=== PATIENT | female | born 1955 | race Caucasian/White ===

== ENCOUNTER 2016-07-31 22:40 | Emergency (ER) | payer BC ==
[~2016-07-31] VITALS: Ht 180.3 cm; Wt 73.4 kg
[~2016-07-31 22:40] MED LIST: ASPCH81X PO; CORN1POW2 PO; MISCTAB78 PO; MULT-614 PO; MULT-663 PO; OMEG10007 PO; VITAMIN D2 PO
[2016-07-31 22:42] VITALS: TEMP 37.2; Ht 180.3 cm; Wt 73.4 kg
[2016-07-31] MEDS ORDERED: HYDR-5688 PO (23:27)
--- NOTE | 2016-07-31 23:28 | EMERGENCY ROOM VISIT NOTE ---
ED Visit Note First contact with patient: 22:45 CHIEF COMPLAINT: Wrist injury HISTORY OF PRESENT ILLNESS: This 61-year-old female patient presents to the emergency department ambulatory complaining of pain in the left wrist after a fall which occurred earlier this afternoon. The patient reports that she slipped on ice and braced herself with her left wrist. The patient is unable to move their wrist. The patient states the pain is throbbing and 8/10. She did attempt to apply ice to the wrist and taken Tylenol without relief. No laceration, no weakness. No numbness or tingling. The patient denies any other injury. The patient is able to move their fingers and elbow without difficulty. The patient has not had a previous fracture to this wrist. REVIEW OF SYSTEMS: A 6 system review of systems was performed with positives and pertinent negatives in the HPI. ALLERGIES: Oxycodone MEDICATIONS: See med list PMH: Hip replacements SOCIAL HISTORY: The patient lives locally with her family. Nonsmoker. PHYSICAL EXAM: Vital Signs: Reviewed Nurse's notes, vital signs stable. GENERAL : This is a 61-year-old female, in no acute distress, but appears to be in pain , well-developed, well-nourished. NEURO: Alert and oriented to person place and time. Normal sensation to light and sharp touch. MUSCULOSKELETAL: There is no deformity of the left wrist. There is moderate soft tissue swelling over the dorsal aspect of the lateral wrist There is tenderness to palpation over the dorsal aspect of the wrist. There is no snuff box tenderness. Range of motion is significantly decreased due to swelling and discomfort. There is no tenderness of the elbow, hand or fingers. Polysomnography Tech strength 5/5. Radial pulse 2+. SKIN: Normal and intact. The hand is warm and well perfused with capillary refill less than 2 seconds. EMERGENCY DEPARTMENT COURSE: I examined the patient. An X-ray of the left wrist was reviewed by myself and Dr. Fink and does not seem to show any acute fracture. However, given the significance of the patient's swelling I am concerned for possible scaphoid injury. The patient was placed in an Ortho- Glass thumb spica splint and instructed to follow-up with orthopedics next week for evaluation. She was given a home pack and prescription for Parnell to be used for pain. The [place] prescription drug monitoring program was queried and no red flags were identified. The patient verbalized her understanding of my assessment and treatment plan and was discharged home in good condition. DIAGNOSIS: Left wrist injury Current/Historical Medications Scheduled Aspirin (Aspirin Chewable), 81 MG PO QPM Cactus Dextrin (Fiber Powder), 1 DOSE PO 5XWK Fish Oil ([place]-3), 1 CAP PO QPM Misc Natural Products (Osteo Bi-Flex Advanced Do), 1 TAB PO QAM Multiple Minerals W/ Vitamins (Citracal Plus), 1 TAB PO 2XWK Multiple Vitamins W/ Minerals (Centrum Silver Ultra [place]), 1 TAB PO 3XWK [Vitamin D2], 5,000 UNITS PO MONTHLY Scheduled PRN Hydrocodone/Acetaminophen 5MG/325MG (Parnell 5MG/325MG), 1-2 TABLET PO Q4H PRN for Pain Allergies Coded Allergies: Oxycodone (Verified Allergy, Unknown, SKIN ITCHING, 11/29/15) Vital Signs Date Time Temp Pulse Resp B/P Pulse Ox O2 Delivery O2 Flow Rate FiO2 07/31/16 22:42 37.2 79 20 163/90 96 Room Air Medications Administered Medications (Trade) Dose Ordered Sig/Shayna Route Start Time Stop Time Status Last Admin Dose Admin Acetaminophen/ Hydrocodone Bitart (Parnell 5/325mg Home Pack) 1 homepack UD ONCE PO 07/31/16 23:30 07/31/16 23:31 DC 07/31/16 23:28 1 HOMEPACK Departure Information Impression Primary Impression: Left wrist injury Dispostion Home / Self-Care Condition GOOD Prescriptions Hydrocodone/Acetaminophen 5MG/325MG (Parnell 5MG/325MG) Tab 1-2 TABLET PO Q4H Y for Pain, #15 TAB For Initial Treatment Prov: Ivanna Felder ., JOANNA 07/31/16 Referrals Gloria Avalos DO (PCP) Luis Barajas M.D. Patient Instructions A Signature Page, My [facility] [place] Additional Instructions You have been treated in the Emergency Department for Wrist Pain. You have been prescribed Parnell to be used for pain control. This is a narcotic medication. You cannot drive or consume alcohol while on this medicine. This medicine should only be used for pain that cannot be controlled with over-the- counter pain medicines. For pain control, you can use the following [id number] medicines (if >12 yo): - Regular strength (325mg/tab) Tylenol (acetaminophen) 2 tabs every 4-6 hours as needed. Do not exceed 12 tablets in a 24 hour period. Avoid taking more than 4 grams (4000 mg) of Tylenol per day. This includes any other sources of acetaminophen you may take on a regular basis. - Regular strength (200 mg/tab) Advil (ibuprofen) 1-2 tabs every 4-6 hours as needed. Do not exceed a dose of 3200 mg per day. If this is a recent injury (<24 hrs), ice can be applied to the area of pain for the first 3 days to help decrease pain and inflammation. Follow-up with orthopedics next week. Keep the splint in place until follow- up. Do not get the splint wet. Return to the Emergency Department if your current symptoms worsen despite treatment course outlined above, or if you develop any of the following symptoms : intractable pain despite aforementioned treatment course or new onset of numbness or tingling of the fingers.
[2016-07-31] MEDS ORDERED: NORCO 5/325MG HOME PACK PO ONE (23:30)
[2016-08-01 00:10] VITALS: BP 135/78; PULSE 72; O2SAT 97
--- NOTE | 2016-08-01 06:52 | DIAGNOSTIC IMAGING REPORT ---
LEFT WRIST W/NAVICULAR MIN 3 VIEWS CLINICAL HISTORY: Left wrist pain following injury. COMPARISON: None FINDINGS: Alignment of the left wrist is anatomic. No acute fracture is identified. Scaphoid is intact. IMPRESSION: No acute fracture or dislocation of the left wrist. Electronically signed by: Prem Ring M.D. 08/01/2016 6:50 AM Dictated Date/Time: 08/01/2016 6:49 AM
== END 2016-08-01 00:10 | disposition home or self-care (01) ==
LOC: C.EDB 22:42
DX: S69.92XA Unspecified injury of left wrist, hand and finger(s), initial encounter (principal); W01.0XXA Fall on same level from slipping, tripping and stumbling without subsequent striking against object, initial encounter; Z96.649 Presence of unspecified artificial hip joint; Z79.82 Long term (current) use of aspirin; Z79.899 Other long term (current) drug therapy; Z88.5 Allergy status to narcotic agent

== ENCOUNTER → 2016-11-05 | Outpatient (CLI) | payer BC ==
[~2016-11-05] MED LIST changes: +HYDR-5688 PO
[2016-11-05 09:50] LABS: BASO % 0.8 %; BASO ABS # 0.03 K/uL (0-0.2); COMPLETE YES; EOS % 2.7 %; HEMATOCRIT 38.2 % (37-47); LYMPH % 26.6 %; LYMPH ABS # 0.98 K/uL (1.2-3.4); MEAN CELL VOLUME 88.4 fL (80-100); MEAN CORPUSCULAR HEMOGLOBIN 30.3 pg (25-34); MEAN CORPUSCULAR HGB CONC 34.3 g/dl (32-36); MEAN PLATELET VOLUME 10.4 fL (7.4-10.4); MONO % 9.8 %; NEUT % 60.1 %; PLATELET COUNT 303 K/uL (130-400); RED BLOOD COUNT 4.32 M/uL (4.2-5.4); WHITE BLOOD COUNT 3.68 K/uL (4.8-10.8)
[2016-11-05 10:36] LABS: ALT/SGPT 26 U/L (12-78); AST/SGOT 25 U/L (15-37); BLOOD UREA NITROGEN 15 mg/dl (7-18); BUN/CREATININE RATIO 23.7 (10-20); CALCIUM 9.1 mg/dl (8.5-10.1); CARBON DIOXIDE 27 mmol/L (21-32); CHLORIDE 105 mmol/L (98-107); CREATININE 0.64 mg/dl (0.60-1.20); GLUCOSE 104 mg/dl (70-99); SODIUM 140 mmol/L (136-145)
[2016-11-05 10:40] LABS: ALB/GLOB RATIO 1.1 (0.9-2); ALKALINE PHOSPHATASE 69 U/L (45-117); CHOLESTEROL 229 mg/dl (0-200); CHOLESTEROL/HDL RATIO 1.6; HDL CHOLESTEROL 144 mg/dl; LDL CHOLESTEROL CALCULATED 79 mg/dl; TRIGLYCERIDES 28 mg/dl (0-150); VERY LOW DENSITY LIPOPROT CALC 6 mg/dl
[2016-11-05 10:49] LABS: ESTIMATED AVERAGE GLUCOSE 114 mg/dl; HA1C FLAG Normal (Normal)
== END | disposition home or self-care (01) ==
LOC: C.LAB 07:55
PROVIDERS: ATTEND Family Medicine
DX: E55.9 Vitamin D deficiency, unspecified (principal); D64.9 Anemia, unspecified; D72.819 Decreased white blood cell count, unspecified; E78.5 Hyperlipidemia, unspecified

== ENCOUNTER → 2017-01-22 | Outpatient (CLI) | payer BC ==
--- NOTE | 2017-01-22 12:31 | MAMMOGRAPHY REPORT ---
BILATERAL DIGITAL SCREENING MAMMOGRAM WITH CAD: 01/22/2017 TECHNIQUE: Current study was also evaluated with a Computer Aided Detection (CAD) system. Bilateral CC and MLO views were obtained. COMPARISON: Comparison is made to exams dated: 01/21/2016 mammogram, 01/24/2015 ultrasound, 01/24/2015 ma mmogram, 01/17/2015 mammogram, 01/15/2014 mammogram, and 12/30/2012 mammogram - [facility]. BREAST COMPOSITION: The tissue of both breasts is heterogeneously dense, which may obscure small mas ses. FINDINGS: No suspicious masses, calcifications, or areas of architectural distortion are noted in ei ther breast. There has been no significant interval change compared to prior exams. There is stable architectural distortion in the left upper outer quadrant consistent with postsurgical changes. Bila teral benign-appearing calcifications are not significantly changed. IMPRESSION: ACR BI-RADS CATEGORY 2: BENIGN There is no mammographic evidence of malignancy. A 1 year screening mammogram is recommended. The pa tient will receive written notification of the results. Approximately 10% of breast cancers are not detected with mammography. A negative mammographic report should not delay biopsy if a clinically suggestive mass is present. Shari Multani M.D. /:01/22/2017 07:49:59 [employer] Analyst: Katie PFEIFFER(Milana)(M), [facility] letter sent: Normal 1/2 BI-RADS Code: ACR BI-RADS Category 2: Benign
== END | disposition home or self-care (01) ==
LOC: C.MAMM 07:26
PROVIDERS: ATTEND Obstetrics & Gynecology
DX: Z12.31 Encounter for screening mammogram for malignant neoplasm of breast (principal)

== ENCOUNTER → 2017-05-04 | Outpatient (CLI) | payer BC ==
[~2017-05-04] MED LIST changes: -HYDR-5688 PO
== END | disposition home or self-care (01) ==
LOC: C.MAMM 09:04
PROVIDERS: ATTEND Nurse Practitioner Adult Health
DX: Z00.00 Encounter for general adult medical examination without abnormal findings (principal); E55.9 Vitamin D deficiency, unspecified

== ENCOUNTER → 2017-08-03 | Outpatient (CLI) | payer BC | END | disposition home or self-care (01) | LOC: C.PAPS 16:05 | PROVIDERS: ATTEND Obstetrics & Gynecology | DX: Z01.419 Encounter for gynecological examination (general) (routine) without abnormal findings (principal) ==

== ENCOUNTER 2021-04-09 09:39 | Inpatient (IN) ==
[2021-04-09] MEDS ORDERED: SODIUM CHLORIDE 0.9% 1000ML 2,000 ML IV ONE (11:58)
[2021-04-09] MEDS ORDERED: KETOROLAC TROMETHAMINE 15 MG/ML VIAL IV ONE (11:58)
--- NOTE | 2021-04-09 11:58 | Emergency Department Note ---
Impression & Plan Pyelonephritis, Back pain, Leukocytosis ED Provider Note NAME: АННА MOYA AGE: 66 SEX: F : 1955 ARRIVES VIA: Walk-In INFORMANT: Patient ED PROVIDER(S): Fernandez Hurst DO CHIEF COMPLAINT: Weakness HPI: Patient is a 66-year-old female who presents the ER for not feeling well which started this past night with chills and a cough. She notes a dry cough and has not been Coughing anything up. She does have shortness of breath which started Wednesday and has been persistent. She notes her belly feels bloated as well as her legs. She has pain in her bilateral calves. She notes is painful to walk. She does have some nausea. She admits to frequency and some trouble urinating which started several days ago. She was placed on antibiotic by med [facility]. Following this she started to get some diarrhea. She does have some mild back pain. ROS: See above HPI for pertinent positives & negatives. A total of 10 systems reviewed and were otherwise negative. PAST MEDICAL HISTORY:See Below PAST SURGICAL HISTORY:See Below FAMILY HISTORY:See Below SOCIAL HISTORY:See Below HOME MEDICATIONS:See Below ALLERGIES:See Below VITALS:See Below PHYSICAL EXAMINATION: GENERAL: Sitting up in bed, alert, well appearing, well nourished, no distress, non-toxic EYE EXAM: normal conjunctiva. PERRL and EOM's grossly intact. OROPHARYNX: mask in place NECK: supple, no nuchal rigidity, no adenopathy, non-tender LUNGS: Clear to auscultation. Normal chest wall mechanics HEART: no murmurs, S1 normal and S2 normal ABDOMEN: abdomen soft, non-tender, normo-active bowel sounds, no masses, no rebound or guarding. BACK: Back is symmetrical on inspection and there is no deformity, no midline tenderness, no CVA tenderness. UPPER EXTREMITIES: upper extremities are grossly normal. LOWER EXTREMITIES: No pitting edema. Calves are equal bilateral. DPs are 2 out of 4. Full range of motion of bilateral hips knees and ankles. NEURO EXAM: Normal sensorium, cranial nerves II-XII grossly intact, normal speech, no gross weakness of arms, no gross weakness of legs. MEDICAL DECISION MAKING: Patient is a 66-year-old female who presents ER for above-stated complaint. IV was established blood was obtained. Labs show leukocytosis with. Mild D-dimer elevated 23. BMP with a hyponatremia 122. CO2 low 21 5. Lipase is a markable. UA was contaminated with multiple cole. Lyme was negative. Covid was negative. CT abdomen pelvis shows a likely pyelonephritis. Patient was given IV antibiotics and IV fluids. Updated bedside. Discussed with the hospitalist admitted for further work-up. Triage Nursing notes reviewed. Limited review of prior medical records performed Vital Signs: reviewed and remarkable for no significant abnormalities Differential diagnosis: Infection, dehydration, metabolic abnormality, hypo/hyperglycemia, electrolyte disturbance, anemia, hypoxia, cardiac sources, intracerebral event, toxicologic, neurologic, as well as other pathologies. ER treatment provided: See below Diagnostics interpreted by me: ECG: Sinus rhythm rate 78 Normal axis No PVCs QTC 417 Cardiac Monitoring: An order was placed for continuous cardiac monitoring. The monitor shows a rate of 92 with sinus rhythm. Laboratory studies: As stated above and show below. Imaging studies: See below Consultation(s): Discussed the hospitalist for further evaluation Procedures: none Critical Care: None Past Med/Surg History Medical History (Updated 04/09/21 @ 18:12 by Fernandez Hurst DO) MICHAEL positive Hearing loss Hyperglycemia Hyperlipidemia Osteoarthritis (arthritis due to wear and tear of joints) Raynaud's phenomenon without gangrene Vitamin D deficiency Surgical History H/O colonoscopy History of breast biopsy History of hip replacement History of hip surgery S/P left knee arthroscopy S/P trigger finger release Family History Father Heart failure [employer] pneumoconiosis Cardiac disorder Hypertension Lung disease Mother Stroke syndrome Coronary heart disease Hypertension Cardiac disorder Myocardial infarction Brother Alcoholic liver damage Alcohol abuse Uncle Myocardial infarction Denies family history of Ovarian cancer Prostate cancer Breast cancer Colorectal cancer Social History Smoking Status: Never smoker Hx Alcohol Use: Yes Alcohol type: wine Hx Substance Use: No Preferred Language: Slovak Communication Ability: Effective Visual Impairment: No Limitations Hearing Ability: Use of Hearing Aid marital status: Current Living Situation: Spouse current occupational status: employed current occupation: [employer] Feels Safe at Home: Yes Childhood Exposure to Second-Hand Smoke: Yes Dental Care, Regularly: Yes Physical Activity Frequency: Daily Seatbelt Use: always Sunscreen Use: Yes Allergies Allergies Allergy/AdvReac Type Severity Reaction Status Date / Time oxycodone Allergy Unknown SKIN Verified 10/31/20 11:28 ITCHING Home Meds Home Medications Medication Instructions Recorded Confirmed omega-3 fatty acids 1,000 mg 1,000 mg PO DAILY 04/13/19 04/09/21 capsule cholecalciferol (vitamin D3) 10 400 units PO 3XWK cap 04/14/19 04/09/21 mcg (400 unit) capsule multivitamin-ferrous 1 tab PO DAILY tab 04/14/19 04/09/21 fumarate-folic acid 18 mg-400 mcg tablet chondroitin sulf A sod (bulk) 1 dose PO DAILY 10/06/19 04/09/21 [Chondroitin Sulfate] methylcellulose (with sugar) oral 1 tbs PO BID 10/06/19 04/09/21 powder (Citrucel (sucrose)) turmeric root extract 500 mg 500 mg PO DAILY PRN 04/19/20 04/09/21 capsule aspirin 81 mg tablet,delayed 81 mg PO DAILY 04/09/21 04/09/21 release Results & Data (ED) Vital Signs Vital Signs - 24 hr 04/09/21 09:57 04/09/21 11:20 04/09/21 11:30 Temperature 37 C Temperature Source Temporal Artery Scan Pulse Rate 95 H 90 79 Pulse Rate from SpO2 Sensor 90 Respiratory Rate 16 18 19 Respiratory Effort / Characteristics Non-Labored Respiratory Depth Normal Blood Pressure 143/77 H 180/98 H 172/102 H Blood Pressure Mean 99 125 125 Pulse Oximetry 100 99 Oxygen Delivery Method Room Air Sepsis Recent Fever Within 48 Hours No Sepsis New/Unexplained Change in Mental Status No Sepsis Action Taken by Nursing No Action Required 04/09/21 11:45 04/09/21 12:00 04/09/21 12:15 Temperature Temperature Source Pulse Rate 80 75 82 Pulse Rate from SpO2 Sensor 81 76 81 Respiratory Rate 21 19 23 Respiratory Effort / Characteristics Respiratory Depth Blood Pressure 164/97 H 164/90 H 164/98 H Blood Pressure Mean 119 114 120 Pulse Oximetry 98 97 99 Oxygen Delivery Method Sepsis Recent Fever Within 48 Hours Sepsis New/Unexplained Change in Mental Status Sepsis Action Taken by Nursing 04/09/21 12:30 04/09/21 12:41 04/09/21 12:45 Temperature Temperature Source Pulse Rate 78 77 Pulse Rate from SpO2 Sensor 79 77 Respiratory Rate 23 22 Respiratory Effort / Characteristics Respiratory Depth Blood Pressure 169/89 H 163/92 H Blood Pressure Mean 115 115 Pulse Oximetry 98 98 99 Oxygen Delivery Method Room Air Sepsis Recent Fever Within 48 Hours Sepsis New/Unexplained Change in Mental Status Sepsis Action Taken by Nursing 04/09/21 13:29 04/09/21 13:45 04/09/21 14:00 Temperature Temperature Source Pulse Rate 98 H 77 79 Pulse Rate from SpO2 Sensor 77 78 Respiratory Rate 21 20 Respiratory Effort / Characteristics Respiratory Depth Blood Pressure 152/86 H 162/90 H Blood Pressure Mean 108 114 Pulse Oximetry 99 97 Oxygen Delivery Method Sepsis Recent Fever Within 48 Hours Sepsis New/Unexplained Change in Mental Status Sepsis Action Taken by Nursing 04/09/21 17:10 04/09/21 17:30 04/09/21 18:00 Temperature Temperature Source Pulse Rate 73 84 Pulse Rate from SpO2 Sensor 71 Respiratory Rate 21 21 15 Respiratory Effort / Characteristics Respiratory Depth Blood Pressure 146/84 H 152/84 H Blood Pressure Mean 104 106 Pulse Oximetry 100 Oxygen Delivery Method Sepsis Recent Fever Within 48 Hours Sepsis New/Unexplained Change in Mental Status Sepsis Action Taken by Nursing Laboratory Data Result diagrams: 04/09/21 11:30 04/09/21 11:30 Lab Results 04/09/21 04/09/21 04/09/21 Range/Units 11:30 11:30 11:30 WBC 13.90 H (4.8-10.8) K/uL RBC 3.93 L (4.2-5.4) M/uL Hgb 12.3 (12.0-16.0) g/dL Hct 34.2 L (37-47) % MCV 87.0 (80-100) fL MCH 31.3 (25-34) pg MCHC 36.0 (32-36) g/dL RDW Std Deviation 42.7 (36.4-46.3) fL RDW Coeff of Allen 13.2 (11.5-14.5) % Plt Count 354 (130-400) K/uL MPV 9.8 (7.4-10.4) fL Immature Gran % (Auto) 1.0 % Neut % (Auto) 82.2 % Lymph % (Auto) 8.8 % Jack % (Auto) 7.6 % Eos % (Auto) 0.3 % Baso % (Auto) 0.1 % Neut # (Auto) 11.43 H (1.4-6.5) K/uL Lymph # (Auto) 1.23 (1.2-3.4) K/uL Jack # (Auto) 1.05 H (0.11-0.59) K/uL Eos # (Auto) 0.04 (0-0.5) K/uL Baso # (Auto) 0.01 (0-0.2) K/uL Immature Gran # (Auto) 0.14 H (0.00-0.02) K/uL D-Dimer 2300 H* (0-500) ug/L FEU Sodium 122 L (136-145) mmol/L Potassium 3.5 (3.5-5.1) mmol/L Chloride 92 L (98-107) mmol/L Carbon Dioxide 20 L (21-32) mmol/L Anion Gap 10.0 (3-11) BUN 27 H (7-18) mg/dl Creatinine 1.52 H (0.6-1.2) mg/dl Est Cr Clr Drug Dosing Not Reportable Est GFR ( Amer) 41.0 ml/min Est GFR (Non-Af Amer) 35.4 ml/min BUN/Creatinine Ratio 18.0 (10-20) Glucose 105 H (70-99) mg/dl Calcium 9.0 (8.5-10.1) mg/dl Total Bilirubin 0.7 (0.2-1) mg/dl AST 26 (15-37) U/L ALT 40 (12-78) U/L Alkaline Phosphatase 352 H (45-117) U/L Troponin I < 0.015 (0-0.045) ng/ml Total Protein 7.5 (6.4-8.2) gm/dl Albumin 2.6 L (3.4-5.0) gm/dl Globulin 4.9 H (2.5-4.0) gm/dl Albumin/Globulin Ratio 0.5 L (0.9-2) Lipase 91 (73-393) U/L Urine Color Urine Appearance (Clear) Urine pH (4.5-7.5) Ur Specific Finley (1.000-1.030) Urine Protein (Negative) Urine Glucose (UA) (Negative) Urine Ketones (Negative) Urine Blood (Negative) Urine Nitrite (Negative) Urine Bilirubin (Negative) Urine Urobilinogen (Negative) Ur Leukocyte Esterase (Negative) Urine WBC (Auto) (0-5) /hpf Urine RBC (Auto) (0-4) /hpf U Hyaline Cast (Auto) (0-5) /lpf U Epithel Cells (Auto) (0-5) /lpf Urine Bacteria (Auto) (Negative) Ur Renal Epithelial Cell Urine Yeast Lyme Disease IgG Ab (Negative) Lyme Disease IgM Ab (Negative) COVID-19 Eval Order SARS-CoV-2 (PCR) (Negative) SARS-CoV-2 RNA (FABIOLA) 04/09/21 04/09/21 04/09/21 Range/Units 11:30 11:30 12:11 WBC (4.8-10.8) K/uL RBC (4.2-5.4) M/uL Hgb (12.0-16.0) g/dL Hct (37-47) % MCV (80-100) fL MCH (25-34) pg MCHC (32-36) g/dL RDW Std Deviation (36.4-46.3) fL RDW Coeff of Allen (11.5-14.5) % Plt Count (130-400) K/uL MPV (7.4-10.4) fL Immature Gran % (Auto) % Neut % (Auto) % Lymph % (Auto) % Jack % (Auto) % Eos % (Auto) % Baso % (Auto) % Neut # (Auto) (1.4-6.5) K/uL Lymph # (Auto) (1.2-3.4) K/uL Jack # (Auto) (0.11-0.59) K/uL Eos # (Auto) (0-0.5) K/uL Baso # (Auto) (0-0.2) K/uL Immature Gran # (Auto) (0.00-0.02) K/uL D-Dimer (0-500) ug/L FEU Sodium (136-145) mmol/L Potassium (3.5-5.1) mmol/L Chloride (98-107) mmol/L Carbon Dioxide (21-32) mmol/L Anion Gap (3-11) BUN (7-18) mg/dl Creatinine (0.6-1.2) mg/dl Est Cr Clr Drug Dosing Est GFR ( Amer) ml/min Est GFR (Non-Af Amer) ml/min BUN/Creatinine Ratio (10-20) Glucose (70-99) mg/dl Calcium (8.5-10.1) mg/dl Total Bilirubin (0.2-1) mg/dl AST (15-37) U/L ALT (12-78) U/L Alkaline Phosphatase (45-117) U/L Troponin I (0-0.045) ng/ml Total Protein (6.4-8.2) gm/dl Albumin (3.4-5.0) gm/dl Globulin (2.5-4.0) gm/dl Albumin/Globulin Ratio (0.9-2) Lipase (73-393) U/L Urine Color Yellow Urine Appearance Clear (Clear) Urine pH 6.5 (4.5-7.5) Ur Specific Finley 1.006 (1.000-1.030) Urine Protein 1+ H (Negative) Urine Glucose (UA) Negative (Negative) Urine Ketones Negative (Negative) Urine Blood 2+ H (Negative) Urine Nitrite Negative (Negative) Urine Bilirubin Negative (Negative) Urine Urobilinogen Negative (Negative) Ur Leukocyte Esterase 1+ H (Negative) Urine WBC (Auto) >30 H (0-5) /hpf Urine RBC (Auto) 5-10 H (0-4) /hpf U Hyaline Cast (Auto) 1-5 (0-5) /lpf U Epithel Cells (Auto) >30 H (0-5) /lpf Urine Bacteria (Auto) 1+ H (Negative) Ur Renal Epithelial Cell Not Reportable Urine Yeast Not Reportable Lyme Disease IgG Ab Negative (Negative) Lyme Disease IgM Ab Negative (Negative) COVID-19 Eval Order Covid19 [place] [facility] SARS-CoV-2 (PCR) (Negative) SARS-CoV-2 RNA (FABIOLA) 04/09/21 04/09/21 04/09/21 Range/Units 12:11 Unknown Unknown WBC (4.8-10.8) K/uL RBC (4.2-5.4) M/uL Hgb (12.0-16.0) g/dL Hct (37-47) % MCV (80-100) fL MCH (25-34) pg MCHC (32-36) g/dL RDW Std Deviation (36.4-46.3) fL RDW Coeff of Allen (11.5-14.5) % Plt Count (130-400) K/uL MPV (7.4-10.4) fL Immature Gran % (Auto) % Neut % (Auto) % Lymph % (Auto) % Jack % (Auto) % Eos % (Auto) % Baso % (Auto) % Neut # (Auto) (1.4-6.5) K/uL Lymph # (Auto) (1.2-3.4) K/uL Jack # (Auto) (0.11-0.59) K/uL Eos # (Auto) (0-0.5) K/uL Baso # (Auto) (0-0.2) K/uL Immature Gran # (Auto) (0.00-0.02) K/uL D-Dimer (0-500) ug/L FEU Sodium (136-145) mmol/L Potassium (3.5-5.1) mmol/L Chloride (98-107) mmol/L Carbon Dioxide (21-32) mmol/L Anion Gap (3-11) BUN (7-18) mg/dl Creatinine (0.6-1.2) mg/dl Est Cr Clr Drug Dosing Est GFR ( Amer) ml/min Est GFR (Non-Af Amer) ml/min BUN/Creatinine Ratio (10-20) Glucose (70-99) mg/dl Calcium (8.5-10.1) mg/dl Total Bilirubin (0.2-1) mg/dl AST (15-37) U/L ALT (12-78) U/L Alkaline Phosphatase (45-117) U/L Troponin I (0-0.045) ng/ml Total Protein (6.4-8.2) gm/dl Albumin (3.4-5.0) gm/dl Globulin (2.5-4.0) gm/dl Albumin/Globulin Ratio (0.9-2) Lipase (73-393) U/L Urine Color Urine Appearance (Clear) Urine pH (4.5-7.5) Ur Specific Finley (1.000-1.030) Urine Protein (Negative) Urine Glucose (UA) (Negative) Urine Ketones (Negative) Urine Blood (Negative) Urine Nitrite (Negative) Urine Bilirubin (Negative) Urine Urobilinogen (Negative) Ur Leukocyte Esterase (Negative) Urine WBC (Auto) (0-5) /hpf Urine RBC (Auto) (0-4) /hpf U Hyaline Cast (Auto) (0-5) /lpf U Epithel Cells (Auto) (0-5) /lpf Urine Bacteria (Auto) (Negative) Ur Renal Epithelial Cell Urine Yeast Lyme Disease IgG Ab (Negative) Lyme Disease IgM Ab (Negative) COVID-19 Eval Order Covid19 at [facility] SARS-CoV-2 (PCR) NEGATIVE (Negative) SARS-CoV-2 RNA (FABIOLA) Cancelled Administered Medications Discontinued Medications Sodium Chloride (Nss 1000ml) 2,000 mls @ 999 mls/hr IV .Q2H1M ONE Stop: 04/09/21 13:58 Last Infusion: 04/09/21 16:24 Dose: 0 mls/hr Documented by: [id number] Admin: 04/09/21 14:19 Dose: 999 mls/hr Documented by: [id number] Ceftriaxone Sodium (Rocephin) 1,000 mg in 50 mls @ 100 mls/hr IV NOW STA Stop: 04/09/21 14:51 Last Infusion: 04/09/21 16:19 Dose: 0 mls/hr Documented by: [id number] Admin: 04/09/21 15:18 Dose: 100 mls/hr Documented by: [id number] Ioversol (Optiray 320 125ml) 120 ml IV ONCE ONE Stop: 04/09/21 13:30 Last Admin: 04/09/21 13:29 Dose: 120 ml Documented by: [id number] Ketorolac Tromethamine (Ketorolac Tromethamine 15 Mg/Ml Vial) 15 mg IV NOW ONE Stop: 04/09/21 11:59 Last Admin: 04/09/21 14:19 Dose: 15 mg Documented by: [id number] Ketorolac Tromethamine (Ketorolac Tromethamine 15 Mg/Ml Vial) Confirm Administered Dose 15 mg .ROUTE .STK-MED ONE Stop: 04/09/21 14:11 Last Admin: 04/09/21 14:38 Dose: Not Given Documented by: [id number] Imaging Data Radiologist's Impression: Chest X-Ray 04/09/21 11:58 XR chest 1V portable HISTORY: 66 years-old Female sob acute shortness of breath COMPARISON: Chest radiograph 01/07/2012 TECHNIQUE: Portable AP view of the chest FINDINGS: Cardiac mediastinal and hilar silhouettes are within normal limits. There is no pneumothorax, pleural effusion, airspace consolidation or overt pulmonary edema. Bones of the chest appear grossly intact. IMPRESSION: No acute process. ACT 112: Negative or not required by law. The above report was generated using voice recognition software. It may contain grammatical, syntax or spelling errors. Electronically signed by: Edgar Tsai M.D. 04/09/2021 12:18 PM Abdomen/Pelvis CT 04/09/21 12:42 CT OF THE ABDOMEN AND PELVIS WITH CONTRAST CLINICAL HISTORY: Abdominal pain. COMPARISON STUDY: None. TECHNIQUE: Following IV administration of 120 mL of Optiray, axial images of the abdomen and pelvis were obtained from the lung bases to the proximal femurs. Images were reviewed in the axial, sagittal, and coronal planes. IV contrast was administered without complication. Automated exposure control was utilized for the study. A dose lowering technique was utilized adhering to the principles of ALARA. CT DOSE: 669.59 mGy.cm FINDINGS: Please note that the chest CT will be reported separately. No pneumatosis, free air or portal venous gas is present. Evaluation of the abdomen and pelvis is somewhat difficult given a paucity of intra-abdominal fat. The liver, spleen, adrenal glands and pancreas are unremarkable. There is no biliary or pancreatic ductal dilatation. There is mild body wall edema. A small amount of ascites within the pelvis is noted. Bilateral hip arthroplasties are noted. The caliber and wall thickness of small and large bowel are normal. The appendix is normal. There is no lymphadenopathy. There is no hydronephrosis. Of note, the kidneys are enlarged with multiple hypoenhancing foci within both kidneys, most notably within the upper to midpole of both kidneys. In addition, striated nephrograms are noted. There is mild urothelial thickening of the collecting systems and ureters. Bladder is obscured by streak artifact from hip arthroplasties. No renal abscess is identified. Major vasculature is patent. There is mild bilateral perinephric stranding and fluid. No acute fracture or suspicious lesion is identified within the visualized skeletal structures. IMPRESSION: 1. Findings consistent with extensive acute bilateral pyelonephritis, likely due to ascending infection. No renal abscess. No hydronephrosis. A follow-up CT in 3 months to ensure resolution is recommended to exclude the much less likely possibility of an underlying renal lesion. 2. Small amount of ascites within the pelvis. Mild body wall edema. ACT 112: Negative or not required by law. Electronically signed by: Prem Ring M.D. 04/09/2021 1:53 PM Chest CTA 04/09/21 12:42 CT angio chest PE protocol INDICATION: MN ^B8 ^+dd cp sob. TECHNIQUE: Multidetector row helical CT of the chest was performed. Coronal and sagittal reformations were obtained. Automated dose lowering techniques and/or adjustment according to patient size were utilized for this exam. Comparison: None available at the time of this dictation. FINDINGS: Lungs and pleura: Emphysematous changes are seen. Heart and pericardium: Heart size is normal. No pericardial effusion. Vessels: No evidence of pulmonary embolism. Mediastinum and leandro: Unremarkable. Chest wall and lower neck: Unremarkable. Abdomen: For findings below the diaphragm, please refer to CT of the abdomen dated the same. Bones: Degenerative changes in the thoracic spine. IMPRESSION: No evidence of pulmonary embolism. ACT 112: Negative or not required by law. Electronically signed by: Yovanny Amado M.D. 04/09/2021 1:45 PM Discharge Plan Visit Data Chief Complaint: Illness Stated Complaint: SWELLING ANKLE TO WAIST,CONFUSION,UTI,NAUSEA ED Provider: Fernandez Hurst Discharge Problem: Pyelonephritis, Back pain, Leukocytosis Forms Stand Alone Forms: My [facility] [employer] Prescriptions Prescriptions: No Action turmeric root extract 500 mg capsule 500 mg PO DAILY PRN (Reason: Pain) RF: 0 chondroitin sulf A sod (bulk) 1 dose PO DAILY RF: 0 Citrucel (sucrose) Powder 1 tbs PO BID RF: 0 omega-3 fatty acids 1,000 mg capsule 1,000 mg PO DAILY RF: 0 cholecalciferol (vitamin D3) 400 unit capsule 400 units PO 3XWK RF: 0 svorvwakhgcg-ecww-hrzbx acid 18-400 mg-mcg tablet 1 tab PO DAILY RF: 0 aspirin 81 mg Tablet,Delayed Release (Dr/Ec) 81 mg PO DAILY RF: 0 Referrals Referrals: Steffi Betancourt MD [Primary Care Provider] -
[2021-04-09 12:13] LABS: Basophils # (auto) 0.01 K/uL (0-0.2); Basophils % (auto) 0.1 %; Eosinophils # (auto) 0.04 K/uL (0-0.5); Eosinophils % (auto) 0.3 %; Hematocrit (blood only) 34.2 % (37-47); Hemoglobin 12.3 g/dL (12.0-16.0); Immature Granulocytes # (auto) 0.14 K/uL (0.00-0.02); Lymphocytes # (auto) 1.23 K/uL (1.2-3.4); Lymphocytes % (auto) 8.8 %; Mean Corpuscular Hemoglobin 31.3 pg (25-34); Mean Platelet Volume 9.8 fL (7.4-10.4); Monocytes # (auto) 1.05 K/uL (0.11-0.59); Monocytes % (auto) 7.6 %; Neutrophils # (auto) 11.43 K/uL (1.4-6.5); Neutrophils % (auto) 82.2 %; Platelet Count 354 K/uL (130-400); RDW Coefficient of Variation 13.2 % (11.5-14.5); RDW Standard Deviation 42.7 fL (36.4-46.3); Red Blood Count 3.93 M/uL (4.2-5.4)
[2021-04-09 12:19] LABS: Alanine Aminotransferase 40 U/L (12-78); Albumin Level 2.6 gm/dl (3.4-5.0); Aspartate Aminotransferase 26 U/L (15-37); Blood Urea Nitrogen 27 mg/dl (7-18); Carbon Dioxide 20 mmol/L (21-32); Chloride 92 mmol/L (98-107); Est GFR (Non-African American) 35.4 ml/min; Glucose 105 mg/dl (70-99); Lipase 91 U/L (73-393); Potassium 3.5 mmol/L (3.5-5.1); Sodium 122 mmol/L (136-145)
--- NOTE | 2021-04-09 12:20 | XRay Report ---
XR chest 1V portable HISTORY: 66 years-old Female sob acute shortness of breath COMPARISON: Chest radiograph 01/07/2012 TECHNIQUE: Portable AP view of the chest FINDINGS: Cardiac mediastinal and hilar silhouettes are within normal limits. There is no pneumothorax, pleural effusion, airspace consolidation or overt pulmonary edema. Bones of the chest appear grossly intact. IMPRESSION: No acute process. ACT 112: Negative or not required by law. The above report was generated using voice recognition software. It may contain grammatical, syntax o r spelling errors. Electronically signed by: Edgar Tsai M.D. 04/09/2021 12:18 PM
[2021-04-09 12:25] LABS: Albumin Globulin Ratio 0.5 (0.9-2); Alkaline Phosphatase 352 U/L (45-117); Bilirubin,Total 0.7 mg/dl (0.2-1); Globulin 4.9 gm/dl (2.5-4.0); Total Protein 7.5 gm/dl (6.4-8.2); Troponin I < 0.015 ng/ml (0-0.045)
[2021-04-09 12:36] LABS: D Dimer 2300 ug/L FEU (0-500)
[2021-04-09 12:56] LABS: Appearance Urine Clear (Clear); Bilirubin Urine Negative (Negative); Blood Urine 2+ (Negative); Color Urine Yellow; Glucose Urine UA Negative (Negative); Ketones Urine Negative (Negative); Leukocyte Esterase Urine 1+ (Negative); Nitrite Urine Negative (Negative); Protein Urine 1+ (Negative); Specific Gravity Urine 1.006 (1.000-1.030); Urobilinogen Urine Negative (Negative); pH Urine 6.5 (4.5-7.5)
[2021-04-09 13:12] LABS: Epithelial Cell Urine Auto >30 /lpf (0-5); WBC Urine Automated >30 /hpf (0-5)
[2021-04-09 13:13] LABS: Bacteria Urine Automated 1+ (Negative)
[2021-04-09] MEDS ORDERED: OPTIRAY 320 125ml IV ONE (13:29)
--- NOTE | 2021-04-09 13:47 | CT Scan Report ---
CT angio chest PE protocol INDICATION: MN ^B8 ^+dd cp sob. TECHNIQUE: Multidetector row helical CT of the chest was performed. Coronal and sagittal reformations were obtained. Automated dose lowering techniques and/or adjustment according to patient size were u tilized for this exam. Comparison: None available at the time of this dictation. FINDINGS: Lungs and pleura: Emphysematous changes are seen. Heart and pericardium: Heart size is normal. No pericardial effusion. Vessels: No evidence of pulmonary embolism. Mediastinum and leandro: Unremarkable. Chest wall and lower neck: Unremarkable. Abdomen: For findings below the diaphragm, please refer to CT of the abdomen dated the same. Bones: Degenerative changes in the thoracic spine. IMPRESSION: No evidence of pulmonary embolism. ACT 112: Negative or not required by law. Electronically signed by: Yovanny Amado M.D. 04/09/2021 1:45 PM
[2021-04-09 13:49] LABS: Lyme Ab IgG w/WB Rflx Negative (Negative); Lyme Ab IgM w/WB Rflx Negative (Negative)
--- NOTE | 2021-04-09 13:55 | CT Scan Report ---
CT OF THE ABDOMEN AND PELVIS WITH CONTRAST CLINICAL HISTORY: Abdominal pain. COMPARISON STUDY: None. TECHNIQUE: Following IV administration of 120 mL of Optiray, axial images of the abdomen and pelvis w ere obtained from the lung bases to the proximal femurs. Images were reviewed in the axial, sagittal, and coronal planes. IV contrast was administered without complication. Automated exposure control w as utilized for the study. A dose lowering technique was utilized adhering to the principles of CROW Ferrera. CT DOSE: 669.59 mGy.cm FINDINGS: Please note that the chest CT will be reported separately. No pneumatosis, free air or port al venous gas is present. Evaluation of the abdomen and pelvis is somewhat difficult given a paucity of intra-abdominal fat. The liver, spleen, adrenal glands and pancreas are unremarkable. There is no biliary or pancreatic ductal dilatation. There is mild body wall edema. A small amount of ascites wit hin the pelvis is noted. Bilateral hip arthroplasties are noted. The caliber and wall thickness of sm all and large bowel are normal. The appendix is normal. There is no lymphadenopathy. There is no hydr onephrosis. Of note, the kidneys are enlarged with multiple hypoenhancing foci within both kidneys, m ost notably within the upper to midpole of both kidneys. In addition, striated nephrograms are noted. There is mild urothelial thickening of the collecting systems and ureters. Bladder is obscured by st reak artifact from hip arthroplasties. No renal abscess is identified. Major vasculature is patent. T here is mild bilateral perinephric stranding and fluid. No acute fracture or suspicious lesion is samara ntified within the visualized skeletal structures. IMPRESSION: 1. Findings consistent with extensive acute bilateral pyelonephritis, likely due to ascending infecti on. No renal abscess. No hydronephrosis. A follow-up CT in 3 months to ensure resolution is recommend ed to exclude the much less likely possibility of an underlying renal lesion. 2. Small amount of ascites within the pelvis. Mild body wall edema. ACT 112: Negative or not required by law. Electronically signed by: Prem Ring M.D. 04/09/2021 1:53 PM
[2021-04-09] MEDS ORDERED: KETOROLAC TROMETHAMINE 15 MG/ML VIAL ONE (14:10)
[2021-04-09] MEDS ORDERED: cefTRIAXone SODIUM 1,000 MG/50 ML BAG IV STA (14:22)
--- NOTE | 2021-04-09 15:57 | History & Physical Report ---
Date of Service April 09, 2021 Assessment & Plan (1) Pyelonephritis: Plan: She was started on ceftriaxone the emergency room, okay to continue this daily pending culture results Okay to use oral tramadol as needed for pain Gentle IV hydration Monitor blood pressure and other symptoms Encourage relation (2) Hyperlipidemia: Plan: Patient is not statin, but she takes turmeric and low-dose aspirin at home. Continue to monitor History of Present Illness Chief Complaint: weakness Primary Care Provider: Steffi Betancourt MD This is a 66-year-old female past medical history of hyperlipidemia and vitamin D deficiency that presents today complaining of generalized weakness and pain. Patient is alone in room but she is pleasant a good historian. Patient tells me that she started feeling somewhat ill around 04/03. There were some chills along with mild cough. She felt bloated and as if she was retaining fluid. She had some nausea but no vomiting. She was also having some back pain which seem to be worsening with some radiation into the lower abdomen. Patient went to [facility] on Wednesday, 04/06. She was diagnosed with UTI and given cephalexin. Unfortunately this did not seem to work and she woke up this morning feeling much worse. This is what prompted her to come to the emergency room. Work-up revealed patient has a significant UTI. CT scan shows possible bilateral pyelonephritis. Patient is now being admitted for further evaluation and treatment. The time my evaluation, the patient appeared to be comfortable. She is in no distress. She was afebrile. Allergies Allergy/AdvReac Type Severity Reaction Status Date / Time oxycodone Allergy Unknown SKIN Verified 10/31/20 11:28 ITCHING Home Medications Medication Instructions Recorded Confirmed Type omega-3 fatty acids 1,000 mg 1,000 mg PO DAILY 04/13/19 04/09/21 History capsule cholecalciferol (vitamin D3) 10 400 units PO 3XWK cap 04/14/19 04/09/21 History mcg (400 unit) capsule multivitamin-ferrous 1 tab PO DAILY tab 04/14/19 04/09/21 History fumarate-folic acid 18 mg-400 mcg tablet chondroitin sulf A sod (bulk) 1 dose PO DAILY 10/06/19 04/09/21 History [Chondroitin Sulfate] methylcellulose (with sugar) oral 1 tbs PO BID 10/06/19 04/09/21 History powder (Citrucel (sucrose)) turmeric root extract 500 mg 500 mg PO DAILY PRN 04/19/20 04/09/21 History capsule aspirin 81 mg tablet,delayed 81 mg PO DAILY 04/09/21 04/09/21 History release Past Med/Surg History Medical History (Updated 04/09/21 @ 15:55 by Luis Cagle DO) MICHAEL positive Hearing loss Hyperglycemia Hyperlipidemia Osteoarthritis (arthritis due to wear and tear of joints) Raynaud's phenomenon without gangrene Vitamin D deficiency Surgical History H/O colonoscopy History of breast biopsy History of hip replacement History of hip surgery S/P left knee arthroscopy S/P trigger finger release Family History Father Heart failure [place] [employer] pneumoconiosis Cardiac disorder Hypertension Lung disease Mother Stroke syndrome Coronary heart disease Hypertension Cardiac disorder Myocardial infarction Brother Alcoholic liver damage Alcohol abuse Uncle Myocardial infarction Denies family history of Ovarian cancer Prostate cancer Breast cancer Colorectal cancer Social History Smoking Status: Never smoker Hx Alcohol Use: Yes Alcohol type: wine Hx Substance Use: No Preferred Language: Omani Communication Ability: Effective Visual Impairment: No Limitations Hearing Ability: Use of Hearing Aid marital status: Current Living Situation: Spouse current occupational status: employed current occupation: [employer] Feels Safe at Home: Yes Childhood Exposure to Second-Hand Smoke: Yes Dental Care, Regularly: Yes Physical Activity Frequency: Daily Seatbelt Use: always Sunscreen Use: Yes Review of Systems Constitutional: + fever, + chills, + fatigue and + weakness; no weight loss and no weight gain Eyes: as per Subjective / HPI Respiratory: no cough, no chest congestion, no dyspnea and no dyspnea on exertion Cardiovascular: no chest pain, no orthopnea, no palpitations, no lightheadedness and no edema Gastrointestinal: no abdominal pain, no nausea, no vomiting, no constipation and no diarrhea/loose stools Genitourinary: + urinary frequency; no dysuria, no difficulty urinating, no urinary hesitancy, no urinary urgency and no flank pain Musculoskeletal: no back pain, no neck pain, no joint pain, no stiffness and no myalgia Integumentary: no rash Neurologic: no gait abnormality, no unsteadiness, no falls and no generalized weakness Physical Exam Constitutional: cooperative; no acute distress Neck: trachea midline, no thyromegaly Respiratory: normal respiratory effort Auscultation: lungs clear to auscultation bilaterally; no crackles, no rales, no rhonchi and no wheezes Cardiovascular: Rate/Rhythm: regular rate and regular rhythm Heart Sounds: normal S1 and normal S2 Gastrointestinal (Abdomen): Inspection/Auscultation: abdomen normal to inspection Percussion/Palpation: abdomen soft; abdomen nontender, no guarding, abdomen not rigid and no hepatosplenomegaly Skin: no rashes, warm and dry Results & Data Results & Data ([facility]) Vital Signs (Past 12 Hours) Vital Signs Temp Pulse Resp BP Pulse Ox 04/09/21 12:41 98 04/09/21 09:57 37 C 95 H 16 143/77 H 100 Laboratory Results Laboratory Results WBC 13.90 K/uL (4.8-10.8) H 04/09/21 11:30 RBC 3.93 M/uL (4.2-5.4) L 04/09/21 11:30 Hgb 12.3 g/dL (12.0-16.0) 04/09/21 11:30 Hct 34.2 % (37-47) L 04/09/21 11:30 MCV 87.0 fL (80-100) 04/09/21 11:30 MCH 31.3 pg (25-34) 04/09/21 11:30 MCHC 36.0 g/dL (32-36) 04/09/21 11:30 RDW Std Deviation 42.7 fL (36.4-46.3) 04/09/21 11:30 RDW Coeff of Allen 13.2 % (11.5-14.5) 04/09/21 11:30 Plt Count 354 K/uL (130-400) 04/09/21 11:30 MPV 9.8 fL (7.4-10.4) 04/09/21 11:30 Immature Gran % (Auto) 1.0 % 04/09/21 11:30 Neut % (Auto) 82.2 % 04/09/21 11:30 Lymph % (Auto) 8.8 % 04/09/21 11:30 Gentry % (Auto) 7.6 % 04/09/21 11:30 Eos % (Auto) 0.3 % 04/09/21 11:30 Baso % (Auto) 0.1 % 04/09/21 11:30 Neut # (Auto) 11.43 K/uL (1.4-6.5) H 04/09/21 11:30 Lymph # (Auto) 1.23 K/uL (1.2-3.4) 04/09/21 11:30 Gentry # (Auto) 1.05 K/uL (0.11-0.59) H 04/09/21 11:30 Eos # (Auto) 0.04 K/uL (0-0.5) 04/09/21 11:30 Baso # (Auto) 0.01 K/uL (0-0.2) 04/09/21 11:30 Immature Gran # (Auto) 0.14 K/uL (0.00-0.02) H 04/09/21 11:30 D-Dimer 2300 ug/L FEU (0-500) H* 04/09/21 11:30 Sodium 122 mmol/L (136-145) L 04/09/21 11:30 Potassium 3.5 mmol/L (3.5-5.1) 04/09/21 11:30 Chloride 92 mmol/L (98-107) L 04/09/21 11:30 Carbon Dioxide 20 mmol/L (21-32) L 04/09/21 11:30 Anion Gap 10.0 (3-11) 04/09/21 11:30 BUN 27 mg/dl (7-18) H 04/09/21 11:30 Creatinine 1.52 mg/dl (0.6-1.2) H 04/09/21 11:30 Est Cr Clr Drug Dosing Not Reportable 04/09/21 11:30 Est GFR ( Amer) 41.0 ml/min 04/09/21 11:30 Est GFR (Non-Af Amer) 35.4 ml/min 04/09/21 11:30 BUN/Creatinine Ratio 18.0 (10-20) 04/09/21 11:30 Glucose 105 mg/dl (70-99) H 04/09/21 11:30 Calcium 9.0 mg/dl (8.5-10.1) 04/09/21 11:30 Total Bilirubin 0.7 mg/dl (0.2-1) 04/09/21 11:30 AST 26 U/L (15-37) 04/09/21 11:30 ALT 40 U/L (12-78) 04/09/21 11:30 Alkaline Phosphatase 352 U/L (45-117) H 04/09/21 11:30 Troponin I < 0.015 ng/ml (0-0.045) 04/09/21 11:30 Total Protein 7.5 gm/dl (6.4-8.2) 04/09/21 11:30 Albumin 2.6 gm/dl (3.4-5.0) L 04/09/21 11:30 Globulin 4.9 gm/dl (2.5-4.0) H 04/09/21 11:30 Albumin/Globulin Ratio 0.5 (0.9-2) L 04/09/21 11:30 Lipase 91 U/L (73-393) 04/09/21 11:30 Urine Color Yellow 04/09/21 11:30 Urine Appearance Clear (Clear) 04/09/21 11:30 Urine pH 6.5 (4.5-7.5) 04/09/21 11:30 Ur Specific [place] 1.006 (1.000-1.030) 04/09/21 11:30 Urine Protein 1+ (Negative) H 04/09/21 11:30 Urine Glucose (UA) Negative (Negative) 04/09/21 11:30 Urine Ketones Negative (Negative) 04/09/21 11:30 Urine Blood 2+ (Negative) H 04/09/21 11:30 Urine Nitrite Negative (Negative) 04/09/21 11:30 Urine Bilirubin Negative (Negative) 04/09/21 11:30 Urine Urobilinogen Negative (Negative) 04/09/21 11:30 Ur Leukocyte Esterase 1+ (Negative) H 04/09/21 11:30 Urine WBC (Auto) >30 /hpf (0-5) H 04/09/21 11:30 Urine RBC (Auto) 5-10 /hpf (0-4) H 04/09/21 11:30 U Hyaline Cast (Auto) 1-5 /lpf (0-5) 04/09/21 11:30 U Epithel Cells (Auto) >30 /lpf (0-5) H 04/09/21 11:30 Urine Bacteria (Auto) 1+ (Negative) H 04/09/21 11:30 Ur Renal Epithelial Cell Not Reportable 04/09/21 11:30 Urine Yeast Not Reportable 04/09/21 11:30 Lyme Disease IgG Ab Negative (Negative) 04/09/21 11:30 Lyme Disease IgM Ab Negative (Negative) 04/09/21 11:30 COVID-19 Eval Order Covid19 at [facility] 04/09/21 Unknown SARS-CoV-2 (PCR) NEGATIVE (Negative) 04/09/21 Unknown SARS-CoV-2 RNA (FABIOLA) Cancelled 04/09/21 12:11 Impressions Chest X-Ray 04/09/21 11:58 XR chest 1V portable HISTORY: 66 years-old Female sob acute shortness of breath COMPARISON: Chest radiograph 01/07/2012 TECHNIQUE: Portable AP view of the chest FINDINGS: Cardiac mediastinal and hilar silhouettes are within normal limits. There is no pneumothorax, pleural effusion, airspace consolidation or overt pulmonary edema. Bones of the chest appear grossly intact. IMPRESSION: No acute process. ACT 112: Negative or not required by law. The above report was generated using voice recognition software. It may contain grammatical, syntax or spelling errors. Electronically signed by: Edgar Tsai M.D. 04/09/2021 12:18 PM Abdomen/Pelvis CT 04/09/21 12:42 CT OF THE ABDOMEN AND PELVIS WITH CONTRAST CLINICAL HISTORY: Abdominal pain. COMPARISON STUDY: None. TECHNIQUE: Following IV administration of 120 mL of Optiray, axial images of the abdomen and pelvis were obtained from the lung bases to the proximal femurs. Images were reviewed in the axial, sagittal, and coronal planes. IV contrast was administered without complication. Automated exposure control was utilized for the study. A dose lowering technique was utilized adhering to the principles of ALARA. CT DOSE: 669.59 mGy.cm FINDINGS: Please note that the chest CT will be reported separately. No pneumatosis, free air or portal venous gas is present. Evaluation of the abdomen and pelvis is somewhat difficult given a paucity of intra-abdominal fat. The liver, spleen, adrenal glands and pancreas are unremarkable. There is no biliary or pancreatic ductal dilatation. There is mild body wall edema. A small amount of ascites within the pelvis is noted. Bilateral hip arthroplasties are noted. The caliber and wall thickness of small and large bowel are normal. The appendix is normal. There is no lymphadenopathy. There is no hydronephrosis. Of note, the kidneys are enlarged with multiple hypoenhancing foci within both kidneys, most notably within the upper to midpole of both kidneys. In addition, striated nephrograms are noted. There is mild urothelial thickening of the collecting systems and ureters. Bladder is obscured by streak artifact from hip arthroplasties. No renal abscess is identified. Major vasculature is patent. There is mild bilateral perinephric stranding and fluid. No acute fracture or suspicious lesion is identified within the visualized skeletal structures. IMPRESSION: 1. Findings consistent with extensive acute bilateral pyelonephritis, likely due to ascending infection. No renal abscess. No hydronephrosis. A follow-up CT in 3 months to ensure resolution is recommended to exclude the much less likely possibility of an underlying renal lesion. 2. Small amount of ascites within the pelvis. Mild body wall edema. ACT 112: Negative or not required by law. Electronically signed by: Prem Ring M.D. 04/09/2021 1:53 PM Chest CTA 04/09/21 12:42 CT angio chest PE protocol INDICATION: MN ^B8 ^+dd cp sob. TECHNIQUE: Multidetector row helical CT of the chest was performed. Coronal and sagittal reformations were obtained. Automated dose lowering techniques and/or adjustment according to patient size were utilized for this exam. Comparison: None available at the time of this dictation. FINDINGS: Lungs and pleura: Emphysematous changes are seen. Heart and pericardium: Heart size is normal. No pericardial effusion. Vessels: No evidence of pulmonary embolism. Mediastinum and leandro: Unremarkable. Chest wall and lower neck: Unremarkable. Abdomen: For findings below the diaphragm, please refer to CT of the abdomen dated the same. Bones: Degenerative changes in the thoracic spine. IMPRESSION: No evidence of pulmonary embolism. ACT 112: Negative or not required by law. Electronically signed by: Yovanny Amado M.D. 04/09/2021 1:45 PM PG Care Time/CCT Total # of Minutes Spent Total Time Spent with Patient: Total time spent is greater than 50% in coordination of care (as documented) at patient's floor/unit and/or counseling patient: Coding Level of Care Code 00598 Initial Inpt Care Lvl 3 Diagnoses Hyperlipidemia E78.5 Pyelonephritis N12
[2021-04-09] MEDS ORDERED: ONDANSETRON INJ 2 MG/ML 2 ML VIAL IV PRN (18:28)
[2021-04-09] MEDS ORDERED: PATIENT'S HEIGHT AND/OR WEIGHT NEEDED SCH (19:15)
[2021-04-09] MEDS: SODIUM CHLORIDE 0.9% 1000ML 1,000 ML IV SCH (19:25)
[2021-04-09] MEDS: CHOLECALCIFEROL 400 UNITS 10 MCG TAB PO SCH (20:16)
[2021-04-09] MEDS: ENOXAPARIN INJ 40 MG/0.4 ML SYR SQ SCH (20:16)
[2021-04-09] MEDS ORDERED: PROMETHAZINE HCL 6.25 MG in SODIUM CHLORIDE 0.9% 50 ML IV STA (21:17)
[2021-04-10] MEDS: SODIUM CHLORIDE 0.9% 1000ML 1,000 ML IV SCH (05:46)
[2021-04-10] MEDS: ACETAMINOPHEN 325 MG TAB PO PRN ×3 (05:47→21:16)
[2021-04-10 06:20] LABS: Basophils # (auto) 0.02 K/uL (0-0.2); Basophils % (auto) 0.2 %; Eosinophils # (auto) 0.02 K/uL (0-0.5); Eosinophils % (auto) 0.2 %; Hemoglobin 11.4 g/dL (12.0-16.0); Immature Granulocytes # (auto) 0.24 K/uL (0.00-0.02); Immature Granulocytes % (auto) 2.3 %; Lymphocytes # (auto) 0.66 K/uL (1.2-3.4); Lymphocytes % (auto) 6.2 %; Mean Corpuscular Hemoglobin 30.8 pg (25-34); Mean Corpuscular Hgb Conc 35.6 g/dL (32-36); Mean Corpuscular Volume 86.5 fL (80-100); Mean Platelet Volume 9.2 fL (7.4-10.4); Monocytes % (auto) 14.1 %; Neutrophils # (auto) 8.17 K/uL (1.4-6.5); Platelet Count 335 K/uL (130-400); RDW Coefficient of Variation 13.6 % (11.5-14.5); RDW Standard Deviation 42.9 fL (36.4-46.3); White Blood Count 10.61 K/uL (4.8-10.8)
[2021-04-10 07:07] LABS: BUN Creatinine Ratio 16.6 (10-20); Calcium 8.5 mg/dl (8.5-10.1); Creatinine Clr Calc Pharmacy 41.3 ml/min; Est GFR (African American) 43.7 ml/min; Est GFR (Non-African American) 37.7 ml/min; Magnesium 2.6 mg/dl (1.8-2.4); Potassium 3.9 mmol/L (3.5-5.1)
[2021-04-10] MEDS: CEROVITE ADV FORMULA TAB PO SCH (09:28)
[2021-04-10] MEDS: OMEGA-3 (PURIFIED FISH OIL) 1 GM CAP PO SCH (09:28)
[2021-04-10] MEDS: ASPIRIN 81 MG ECTAB PO SCH (09:28)
--- NOTE | 2021-04-10 13:59 | Hospitalist Progress Note ---
Date of Service April 10, 2021 Assessment & Plan (1) Pyelonephritis: Plan: * Urine culture [employer] showing pansensitive E. coli * Follow-up urinalysis not grossly infected. Repeat urine culture obtained but pending. May be negative given Keflex received [employer] * On Rocephin. Continue this for now. Patient seems to be responding favorably and that she has been afebrile, her symptoms are improving, and her white blood cell count has normalized * BC/UC obtained and pending * no evidence of obstructive uropathy (2) Hyponatremia: Plan: * By history, I suspect this is hypovolemic hyponatremia. Patient had a decreased oral intake with nausea vomiting and diarrhea. Her sodium is improving with IV hydration * Clinically, she does not appear to be volume overloaded; however, she reports that she is "full of fluid". She believes she is having substantial edema in her legs and her abdomen. Will obtain an abdominal ultrasound including the liver to assess for ascites. She did have an elevated D-dimer with negative CTA for PE. Will obtain a bilateral venous Doppler to rule out DVT. * Her albumin is low so perhaps she is third spacing but intravascularly dry. will change NSS to Normosol but I am not clinically appreciating any significant fluid overload * will follow labs to trend (3) CYDNEY (acute kidney injury): Plan: * this would also go in favor of hypovolemia * improving with IV hydration * continue to trend labs Plan: * patient concerned for lyme and other tick born illnesses. At her request, I have ordered a lyme and anaplasma screen * plan of care to be D/W Dr. Maddox. Further orders as [facility] Admission and Anticipated Discharge Date Admission Date: April 09, 2021 Subjective Patient seen on daily rounds today. She is a 66 y/o WF with no significant PMHx who was hospitalized with bilateral pyelonephritis. She has been generally ill x1 week (F/C, myalgias/arthralgias, N/V and urgency). Seen by med david this Wednesday and diagnosed with a urinary tract infection. Started on Keflex but despite that, symptomatology progressive prompting her to come to the ED. Work-up in the ED, patient found to have leukocytosis with left shift. Her ur inalysis was not grossly infected. Her sodium was low at 122 and her creatinine slightly elevated at 1.5. CT scan showed radiographic evidence of by lateral pyelonephritis without abscess. D-dimer was elevated at 2300 for which a CTA was performed showing no evidence of pulmonary embolism. Patient was subsequently hospitalized. She is on Rocephin and she was provided IV hydration. Sodium level is improving with IV hydration. Currently 130. Her creatinine is also downtrending at 1.44. Overall, patient claims that she feels somewhat better today. She is not had any fevers or chills. Her biggest complaint is reporting that she has significant swelling in her abdomen and her legs. She is also now complaining of leg pain bilaterallypredominantly in her calves. I was able to get records from [facility]. Her urine culture has since grown pansensitive E. coli. Covid test done there was negative. Repeat Covid test during this hospitalization is also negative. Patient is fully vaccinated. Review of Systems Review of Systems: All systems reviewed and are unremarkable except as noted in HPI and below as above, c/o edema of the lower extremities and abd. Currently, Denies fevers, chills, headache, nasal congestion, sore throat, cough, chest pain, shortness of breath, orthopnea/PND, abdominal pain, nausea, vomiting, dysuria, hematuria, frequency, skin lesions or rashes. Physical Exam Physical Exam: General: Resting comfortably in her hospital bed. She does not appear ill or toxic. NAD. Neck: No JVD. Negative hepatojugular reflex Cardiac: RRR with 1/6 SNEHAL Lungs: CTA without W/R/R Abdomen: Normoactive X4. No significant evidence of ascites. Soft and nontender in all quadrants. No CVA tenderness Extremities: no significant edema of the b/l LE but calf tenderness bilaterally with bilateral positive dustin's sign Neuro: A&O X4 cranial nerves II through XII are grossly intact no focal neuro deficits Skin: No obvious skin lesions or rashes Results & Data Results & Data ([facility]) Vital Signs (Past 12 Hours) Vital Signs Temp Pulse Resp BP Pulse Ox 04/10/21 07:40 36.9 C 63 18 126/65 97 Laboratory Results 04/10/21 05:44 04/10/21 05:44 Urine culture from urgent care obtained. Showing E. coli with dennis sensitivity Sodium upon presentation: 122 Creatinine upon admission: 1.52. Blood cell count upon admission: 13.[address] of A/P IMPRESSION: 1. Findings consistent with extensive acute bilateral pyelonephritis, likely due to ascending infection. No renal abscess. No hydronephrosis. A follow-up CT in 3 months to ensure resolution is recommended to exclude the much less likely possibility of an underlying renal lesion. 2. Small amount of ascites within the pelvis. Mild body wall edema. CTA: IMPRESSION: No evidence of pulmonary embolism. PG Care Time/CCT Total # of Minutes Spent Total Time Spent with Patient: Total time spent is greater than 50% in coordination of care (as documented) at patient's floor/unit and/or counseling patient: [place]oding [place] [address] Subseq Hosp Care Lvl 3 Patient Type Established History Detailed Exam Detailed Medical Decision Making High Complexity Diagnoses Pyelonephritis N12 Hyponatremia E87.1 CYDNEY (acute kidney injury) N17.9
[2021-04-10] MEDS ORDERED: NORMOSOL-R 1,000 ML IV SCH (14:30)
[2021-04-10] MEDS ORDERED: cefTRIAXone SODIUM 1,000 MG in DEXTROSE 5% 50 ML IV SCH (15:00)
[2021-04-10] MEDS: ENOXAPARIN INJ 40 MG/0.4 ML SYR SQ SCH (19:57)
[2021-04-10 19:58] LABS: Creatinine Urine Random 36.6 mg/dl; Urine Potassium 5.7 mmol/L
--- NOTE | 2021-04-10 21:03 | Ultrasound Report ---
ULTRASOUND BILATERAL LOWER EXTREMITY VENOUS CLINICAL HISTORY: Bilateral calf pain and swelling. COMPARISON STUDY: Right lower extremity venous ultrasound dated 12/25/2014. TECHNIQUE: Real-time, grayscale, and color Doppler sonography of the deep veins of the right and left lower extremity was performed from the inguinal crease to the calf. Compression and augmentation wer e utilized. FINDINGS: There is no sonographic evidence of deep venous thrombosis identified in the right or left lower extremity. The common femoral, superficial femoral, and popliteal veins are patent and normally compressible bilaterally. The greater saphenous vein and the profunda femoris vein at the junction w ith the common femoral vein are clear in both legs. The visualized calf veins are patent bilaterally. A multiloculated left popliteal cyst measures up to 3.5 cm. IMPRESSION: 1. There is no sonographic evidence of deep venous thrombosis identified in the right or left lower e xtremity. 2. Left-sided Ivory's cyst. ACT 112: Negative or not required by law. Electronically signed by: Mauro Vital M.D. 04/10/2021 9:01 PM
--- NOTE | 2021-04-10 21:25 | Ultrasound Report ---
ULTRASOUND ABDOMEN ASCITES CHECK CLINICAL HISTORY: Abdominal distention. COMPARISON STUDY: Abdominal CT dated 04/09/2021. FINDINGS: Real-time grayscale sonography of all 4 quadrants of the abdomen was performed to assess fo r abdominal ascites. There is trace abdominopelvic ascites. IMPRESSION: Trace abdominopelvic ascites. This is insufficient for paracentesis. Electronically signed by: Mauro Vital M.D. 04/10/2021 9:23 PM
--- NOTE | 2021-04-10 21:28 | Ultrasound Report ---
ULTRASOUND RIGHT UPPER QUADRANT ABDOMEN CLINICAL HISTORY: Right upper quadrant abdominal pain. COMPARISON STUDY: Abdominal CT dated 04/09/2021. TECHNIQUE: Real-time, grayscale, and color flow sonography of the right upper quadrant of the abdomen was performed. Images are reviewed in the transverse and longitudinal planes. FINDINGS: Liver: The liver is normal in size and echotexture. There is no intrahepatic biliary ductal dilatatio n. The main portal vein is patent. Gallbladder: The gallbladder is decompressed. No shadowing gallstones are identified. There is no gal lbladder wall thickening. Trace pericholecystic fluid is noted. A sonographic Purdy's sign is report edly absent. The common bile duct measures up to 0.4 cm in diameter. Pancreas: Visualized portions of the pancreatic head and body are normal in appearance. The splenic v ein is patent. Right kidney: Survey images of the right kidney demonstrate thickened and heterogeneous cortex. There is no hydronephrosis. There is trace perinephric fluid. Ascites: Trace ascites is seen in the right upper quadrant. Pleural spaces: There is trace right pleural effusion. IMPRESSION: 1. No shadowing gallstones are identified and there is no sonographic evidence of acute cholecystitis . 2. Enlarged heterogeneous right kidney, which may correspond to pyelonephritis. The right kidney bett er assessed on yesterday's CT scan. Correlate with clinical findings and urinalysis. 3. Trace right upper quadrant ascites. 4. Trace right pleural effusion. ACT 112: Negative or not required by law. Electronically signed by: Mauro Vital M.D. 04/10/2021 9:27 PM
[2021-04-11] MEDS: ACETAMINOPHEN 325 MG TAB PO PRN (02:29)
--- NOTE | 2021-04-11 05:57 | Electrocardiogram Report ---
Test Reason : Blood Pressure : / mmHG Vent. Rate : 078 BPM Atrial Rate : 078 BPM P-R Int : 150 ms QRS Dur : 092 ms QT Int : 366 ms P-R-T Axes : 052 064 060 degrees QTc Int : 417 ms Poor data quality, interpretation may be adversely affected Normal sinus rhythm Normal ECG When compared with ECG of 07-JAN-2012 15:32, No significant change was found Confirmed by Jhonathan Whitlock ([id number]) on 04/11/2021 5:57:26 AM Referred By: REFERRED SELF Confirmed By:Jhonathan Whitlock
[2021-04-11] MEDS: ASPIRIN 81 MG ECTAB PO SCH (07:33)
[2021-04-11] MEDS: CEROVITE ADV FORMULA TAB PO SCH (07:33)
[2021-04-11] MEDS: CHOLECALCIFEROL 400 UNITS 10 MCG TAB PO SCH (07:33)
[2021-04-11] MEDS: OMEGA-3 (PURIFIED FISH OIL) 1 GM CAP PO SCH (07:33)
[2021-04-11 07:55] LABS: Basophils # (auto) 0.03 K/uL (0-0.2); Basophils % (auto) 0.3 %; Eosinophils # (auto) 0.08 K/uL (0-0.5); Eosinophils % (auto) 0.8 %; Hematocrit (blood only) 32.3 % (37-47); Hemoglobin 11.4 g/dL (12.0-16.0); Immature Granulocytes # (auto) 0.37 K/uL (0.00-0.02); Immature Granulocytes % (auto) 3.9 %; Lymphocytes # (auto) 0.71 K/uL (1.2-3.4); Lymphocytes % (auto) 7.5 %; Mean Corpuscular Hgb Conc 35.3 g/dL (32-36); Mean Corpuscular Volume 87.8 fL (80-100); Monocytes # (auto) 1.31 K/uL (0.11-0.59); Monocytes % (auto) 13.8 %; Neutrophils # (auto) 6.98 K/uL (1.4-6.5); Neutrophils % (auto) 73.7 %; Platelet Count 425 K/uL (130-400); RDW Coefficient of Variation 13.6 % (11.5-14.5); RDW Standard Deviation 43.8 fL (36.4-46.3); Red Blood Count 3.68 M/uL (4.2-5.4); White Blood Count 9.48 K/uL (4.8-10.8)
[2021-04-11 08:30] LABS: BUN Creatinine Ratio 13.8 (10-20); Calcium 8.3 mg/dl (8.5-10.1); Creatinine Clr Calc Pharmacy 55.6 ml/min; Est GFR (African American) 62.7 ml/min; Est GFR (Non-African American) 54.1 ml/min; Magnesium 2.3 mg/dl (1.8-2.4); Potassium 3.7 mmol/L (3.5-5.1)
[2021-04-11 08:34] LABS: Albumin Globulin Ratio 0.5 (0.9-2); Bilirubin,Total 0.3 mg/dl (0.2-1)
--- NOTE | 2021-04-11 17:11 | Discharge Summary ---
Date of Service April 11, 2021 Admission HPI Per Admitting Provider This is a 66-year-old female past medical history of hyperlipidemia and vitamin D deficiency that presents today complaining of generalized weakness and pain. Patient is alone in room but she is pleasant a good historian. Patient tells me that she started feeling somewhat ill around 04/03. There were some chills along with mild cough. She felt bloated and as if she was retaining fluid. She had some nausea but no vomiting. She was also having some back pain which seem to be worsening with some radiation into the lower abdomen. Patient went to [facility] on Wednesday, 04/06. She was diagnosed with UTI and given cephalexin. Unfortunately this did not seem to work and she woke up this morning feeling much worse. This is what prompted her to come to the emergency room. Work-up revealed patient has a significant UTI. CT scan shows possible bilateral pyelonephritis. Patient is now being admitted for further evaluation and treatment. The time my evaluation, the patient appeared to be comfortable. She is in no distress. She was afebrile. Principal Diagnosis 1. Bilateral pyelonephritis 2. E. coli UTI 3. Hyponatremialikely hypovolemic 4. AKIresolved and likely due to dehydration 5. Leukocytosisresolved Discharge Exam General: Resting comfortably in her hospital bed. She does not appear ill or toxic. NAD. Neck: No JVD. Negative hepatojugular reflex Cardiac: RRR with 1/6 SNEHAL Lungs: CTA without W/R/R Abdomen: Normoactive X4. No significant evidence of ascites. Soft and nontender in all quadrants. No CVA tenderness Extremities: no significant edema of the b/l LE. Neuro: A&O X4 cranial nerves II through XII are grossly intact no focal neuro deficits Skin: No obvious skin lesions or rashes Discharge Data Allergies Allergy/AdvReac Type Severity Reaction Status Date / Time oxycodone Allergy Unknown SKIN Verified 10/31/20 11:28 ITCHING Ordered Studies 04/09/21 12:42 CT abd pelvis IV con only Stat IMPRESSION: 1. Findings consistent with extensive acute bilateral pyelonephritis, likely due to ascending infection. No renal abscess. No hydronephrosis. A follow-up CT in 3 months to ensure resolution is recommended to exclude the much less likely possibility of an underlying renal lesion. 2. Small amount of ascites within the pelvis. Mild body wall edema. CT angio chest PE protocol Stat IMPRESSION: No evidence of pulmonary embolism. 04/10/21 12:51 US abdomen ltd ascites Routine IMPRESSION: Trace abdominopelvic ascites. This is insufficient for paracentesis. US venous doppler LE Urgent FINDINGS: There is no sonographic evidence of deep venous thrombosis identified in the right or left lower extremity. The common femoral, superficial femoral, and popliteal veins are patent and normally compressible bilaterally. The greater saphenous vein and the profunda femoris vein at the junction with the common femoral vein are clear in both legs. The visualized calf veins are patent bilaterally. A multiloculated left popliteal cyst measures up to 3.5 cm. IMPRESSION: 1. There is no sonographic evidence of deep venous thrombosis identified in the right or left lower extremity. 2. Left-sided Ivory's cyst. 04/10/21 13:13 US liver Routine IMPRESSION: 1. No shadowing gallstones are identified and there is no sonographic evidence of acute cholecystitis. 2. Enlarged heterogeneous right kidney, which may correspond to pyelonephritis. The right kidney better assessed on yesterday's CT scan. Correlate with clinical findings and urinalysis. 3. Trace right upper quadrant ascites. 4. Trace right pleural effusion. Hospital Course (1) Pyelonephritis: treated with Keflex [employer] Empirically treated with Rocephin while in house. patient showed favorable response. Her leukocytosis normalized and her flank pain resolved. She remained afebrile and hemodynamically stable Urine culture showing pansensitive E. colisee below. Blood cultures pending but showing no growth to date CT showing no evidence of obstructive uropathy pansensitive E. coli. Repeat Urine culture showing pansensitive E.Coli E coli RX M.I.C. --- --------- Amox/Clav S <=8/4 Ampicillin R >16 Amp/Sul I 16/8 Cefazolin S <=2 Cefepime S <=2 Ceftriaxone S <=1 Ciprofloxacin S <=0.25 Ertapenem S <=0.5 Gentamicin S <=4 Levofloxacin S <=0.5 Meropenem S <=1 Nitrofurantoin S <=32 Tobramycin S <=4 Trimeth/Sulfa S <=2/38 Pip/Tazo S <=16 At this point, patient is medically and hemodynamically stable. She is completed 48 hours of IV antibiotic therapy. She can be transitioned to oral antibiotic therapy for completion (2) Hyponatremia: * By history, I suspect this is hypovolemic hyponatremia. Patient had a decreased oral intake with nausea vomiting and diarrhea. Her sodium level normalized with IV hydration * Clinically, she does not appear to be volume overloaded; however, she reports that she is "full of fluid". She believed she is having substantial edema in her legs and her abdomen. An abdominal ultrasound and venous Doppler of the bilateral lower extremities were obtained and both unremarkablesee above * Her albumin is low so perhaps she is third spacing but intravascularly dry. Given NSS upfront but changed to Normosol. Edema improved and sodium level normalized * Pharmacy did look at home medication list and nothing ([id number]) would be contributing to hyponatremia. Likely due to volume depletion/dehydration (3) CYDNEY (acute kidney injury): * this would also go in favor of hypovolemia * Resolved with IV hydration Medically hemodynamic stable for discharged home with continued antibiotic therapy by mouth. Transition to Cipro based on culture data for total of 10 days Total Time Total Time Spent Total Time Spent (In Minutes): 60 Discharge Plan Discharge Items Patient Disposition: Home - Self-Care Reason For Visit: PYELONEPHRITIS Discharge Diagnosis: 1. Acute Pyelonephritis- E.Coli Activity: Resume your previous activity Non-emergency contact: Primary Care Provider Call non-emergency contact if: you have any medication questions Follow-up/Referrals: Steffi Betancourt MD [Primary Care Provider] - 04/18/21 9:20 am (APPT WITH DR BARNETT AT [facility]) Diet: Regular Addtl Attending Provider Instructions: - you were hospitalized with Acute Pyelonephritis (infection of the kidney) that occurred secondary to an ascending urinary tract infection - complete full course of antibiotic (Cipro 500mg twice a day for 7 additions days-- next dose due tonight) - in addition, Your sodium level was low and your renal function was slightly off (likely due to dehydration)--which have both corrected with the use of IV fluids - follow up with your PCP within 5-7 days - return to the ED for new or worsening symptoms Pending Studies at Discharge: Yes Studies:: final blood culture-- currently no growth to date Stand-Alone Forms: [facility], Opioid Pain Management, Work/School Release, Smoking Cessation Medications and DC Order Prescriptions: New ciprofloxacin HCl [Cipro] 500 mg tablet 500 mg PO BID Qty: 14 RF: 0 Continued turmeric root extract 500 mg capsule 500 mg PO DAILY PRN (Reason: Pain) RF: 0 chondroitin sulf A sod (bulk) 1 dose PO DAILY RF: 0 Citrucel (sucrose) Powder 1 tbs PO BID RF: 0 omega-3 fatty acids 1,000 mg capsule 1,000 mg PO DAILY RF: 0 cholecalciferol (vitamin D3) 400 unit capsule 400 units PO 3XWK RF: 0 fmoyjvgkvyto-dzok-bxohg acid 18-400 mg-mcg tablet 1 tab PO DAILY RF: 0 aspirin 81 mg Tablet,Delayed Release (Dr/Ec) 81 mg PO DAILY RF: 0 Discharge Orders: Discharge Order (Routine); Ordered 04/11/21 Ordered By: Janet John/Other Patient Handouts: Understanding Urinary Tract ..., ED Pyelonephritis, Female (Adult) Admission Data Admit Date/Time: 04/09/21 16:01 Attending Provider: Yovanny Maddox Admit Provider: Luis Cagle Primary Care Provider: Steffi Betancourt Other Providers: Luis Cagle Other Interventions: Discharge Summary Assessment (RN) Last Done: 04/11/21 12:49 Supervising Physician Co-Signing Physician Notes Patient seen and examined on the day of discharge. I agree with the discharge summary by Janet RAMIREZ. I have reviewed the chart including labs, imaging and plans for discharge. patient feeling much, much better no fever, eating well, minimal discomfort in flanks/back Na up to near normal - Pyelonephritis: complete course of Cipro for E coli, pansensitive infection - CYDNEY and hyponatremia: due to dehydration, poor solute intake, corrected with IV hydration with NSS, feeling better Coding Level of Care Code Established Pt D/C DAY MANAGEMENT >30 MINS Patient Type Established Diagnoses Pyelonephritis N12 Hyponatremia E87.1 CYDNEY (acute kidney injury) N17.9 Time Spent (min) 45
[2021-04-14 12:11] LABS: EBV Nuclear Ag Antibody <18.00 U/mL; EBV Virus Capsid Ag IgG Ab >750.00 U/mL; Epstein Barr Virus Early Ag Ab >150.00 U/mL
== END 2021-04-11 13:40 | disposition home or self-care (01) | DRG 683 ==
LOC: ED 09:39 → SUATTDRO 16:01 → 3E 16:01